=== PATIENT | female | born 1985 | race African-American/Black ===

== ENCOUNTER 2022-09-30 18:43 | Emergency (ER) | payer OTHER ==
[2022-09-30 20:25] LABS: Hemoglobin 12.7 g/dL (12.0-15.5); Mean Corpuscular HGB CONC 33.9 g/dL (32.0-36.0); Mean Corpuscular Hemoglobin 32.9 pg (27.0-33.0); Mean Corpuscular Volume 97.2 fl (81.6-98.3); Mean Platelet Volume 9.4 fl (7.4-10.4); Platelet Count 475 10x3/uL (150-450); RBC Distribution Width 12.8 % (11.5-14.5); Red Blood Cell (RBC) Count 3.86 10x6/uL (3.90-5.03); White Blood Cell (WBC) Count 4.7 10x3/uL (3.5-10.5)
[2022-09-30 20:35] LABS: BHCG - Serum Negative (NEGATIVE); Pregs Control Background? CLEAR/WHITE (CLR/WHITE); Pregs Control Bar Appear? YES (CONTROL BAR)
[2022-09-30 20:40] LABS: ALT (SGPT) 44 U/L (8-55); AST (SGOT) 67 U/L (5-34); Albumin 4.4 g/dL (3.5-5.0); Alkaline Phosphatase 48 U/L (40-110); Anion Gap 14 mmol/L (10-20); BUN (Urea Nitrogen) 6 mg/dL (7.0-18.7); Bilirubin, Total 0.3 mg/dL (0.2-1.2); Calc. Creatinine Clearance 0 mL/min (70-130); Calcium 9.3 mg/dL (7.8-10.44); Carbon Dioxide 26 mmol/L (22-29); Chloride 105 mmol/L (98-107); Estimated GFR 89; Globulin 3.5 g/dL (2.4-3.5); Glucose 96 mg/dL (70-105); Lipase 77 U/L (8-78); Potassium 3.6 mmol/L (3.5-5.1); Protein, Total 7.9 g/dL (6.0-8.3); Sodium 141 mmol/L (136-145)
[2022-09-30 21:03] LABS: Lymphocytes 60 % (21-51); MDiff Complete? YES; Monocytes 6 % (0-10); Neutrophil 34 % (42-75)
[2022-09-30 21:04] LABS: Platelet Morphology Comment Appears Increased; RBC Morphology Normal
[2022-09-30 21:07] LABS: SARS-CoV-2 NAA Rapid Test Not Detected (NotDetected)
[2022-09-30] MEDS ORDERED: Ketorolac Tromethamine 30 MG/ML VIAL ONE (21:34)
== END 2022-09-30 22:23 | disposition home or self-care (01) ==
LOC: CSHERS 18:43
DX: J06.9 Acute upper respiratory infection, unspecified (principal); R07.2 Precordial pain; Z20.822 Contact with and (suspected) exposure to COVID-19; I10 Essential (primary) hypertension; F17.210 Nicotine dependence, cigarettes, uncomplicated; Z79.899 Other long term (current) drug therapy
CPT/HCPCS: 71045; 80053; 83690; 84484; 84703; 85025; 85379; 93005; 96374; J1885

== ENCOUNTER 2023-07-01 08:23 | Emergency (ER) | payer OTHER ==
[2023-07-01] MEDS ORDERED: Ondansetron PF 4 MG/2 ML Vial ONE (08:51)
[2023-07-01 09:14] LABS: #Eosinphils 0.1 10x3/uL (0.0-0.5); #Monocytes 0.5 10x3/uL (0.0-1.1); #Neutrophils 1.9 10x3/uL (1.5-8.4); %Basophils 0.6 % (0.0-2.0); %Eosinophils 1.7 % (0.0-6.0); %Lymphocytes 47.2 % (18.0-47.0); %Monocytes 9.5 % (0.0-10.0); %Neutrophils 40.8 % (40.0-75.0); Hematocrit 42.5 % (34.9-44.5); Hemoglobin 14.4 g/dL (12.0-15.5); Mean Corpuscular HGB CONC 33.9 g/dL (32.0-36.0); Mean Corpuscular Hemoglobin 32.1 pg (27.0-33.0); Mean Corpuscular Volume 94.9 fl (81.6-98.3); Mean Platelet Volume 9.8 fl (7.4-10.4); Platelet Count 476 10x3/uL (150-450); RBC Distribution Width 12.3 % (11.5-14.5); Red Blood Cell (RBC) Count 4.48 10x6/uL (3.90-5.03); White Blood Cell (WBC) Count 4.8 10x3/uL (3.5-10.5)
[2023-07-01 09:34] LABS: ALT (SGPT) 52 U/L (8-55); AST (SGOT) 51 U/L (5-34); Albumin 4.7 g/dL (3.5-5.0); Alkaline Phosphatase 47 U/L (40-110); Anion Gap 18 mmol/L (10-20); BUN (Urea Nitrogen) 9 mg/dL (7.0-18.7); Bilirubin, Total 0.4 mg/dL (0.2-1.2); Calc. Creatinine Clearance 0 mL/min (70-130); Calcium 10.5 mg/dL (7.8-10.44); Carbon Dioxide 21 mmol/L (22-29); Chloride 101 mmol/L (98-107); Estimated GFR 85; Globulin 3.6 g/dL (2.4-3.5); Glucose 99 mg/dL (70-105); Lipase 30 U/L (8-78); Magnesium 1.9 mg/dL (1.6-2.6); Potassium 4.3 mmol/L (3.5-5.1); Protein, Total 8.3 g/dL (6.0-8.3); Sodium 136 mmol/L (136-145)
[2023-07-01 12:22] LABS: Bilirubin Neg (Negative); Blood, Urine Negative (Negative); Clarity Clear (Clear); Glucose, Urine (Dipstick) Normal (Negative); Ketone, Urine 5 mg/dL (Negative); Leukocyte 100 (Negative); Nitrite Negative (Negative); Protein, Urine (Dipstick) 15 mg/dl (Neg-Trace)
[2023-07-01 12:26] LABS: Pregnancy Test - Urine (BHCG) Negative (Negative); Pregu Control Background? CLEAR/WHITE (CLR/WHITE); Pregu Control Bar Appear? YES (CONTROL BAR)
[2023-07-01 12:43] LABS: CAUTI Indications for Culture Pelvic or flank pain; RBC/HPF 0-3 HPF (0-3)
[2023-07-01 12:44] LABS: Transitional Epithelial 0-3 HPF (None Seen)
[2023-07-01 12:45] LABS: Mucous/LPF 2+ LPF (<2+); Trichomonas/HPF Rare HPF (None Seen)
[2023-07-01 12:47] LABS: Bacteria/HPF 2+ HPF (None Seen)
[2023-07-01 12:49] LABS: Urine Culture Reflex No No
== END 2023-07-01 13:10 | disposition home or self-care (01) ==
LOC: CSHERS 08:23
DX: R11.2 Nausea with vomiting, unspecified (principal); A59.9 Trichomoniasis, unspecified; I10 Essential (primary) hypertension; F17.210 Nicotine dependence, cigarettes, uncomplicated
CPT/HCPCS: 80053; 81001; 81025; 83690; 83735; 85025; 96361; 96374; J2405